=== PATIENT | female | born 1995 | race Caucasian/White ===

== ENCOUNTER 2016-12-12 08:55 | Day surgery (SDC) | payer OTHER ==
[~2016-12-12 08:55] MED LIST: LIDOCAINE 1%/EPINEPHRINE INJ 20 ML VIAL ONE
[2016-12-12] MEDS ORDERED: MIDAZOLAM 2 MG/2 ML INJ ONE (09:49)
[2016-12-12] MEDS ORDERED: FENTANYL CITRATE INJ/PF 100 MCG/2 ML AMPUL ONE ×2 (09:49→10:59)
[2016-12-12] MEDS ORDERED: PROPOFOL INJ 200 MG/20 ML VIAL IV ONE (09:50)
[2016-12-12] MEDS ORDERED: SUCCINYLCHOLINE CHLORIDE INJ 200 MG/10 ML VIAL ONE (09:50)
[2016-12-12] MEDS ORDERED: DEXAMETHASONE SOD PHOS INJ 10 MG/1 ML VIAL ONE (09:50)
[2016-12-12] MEDS ORDERED: ONDANSETRON HCL INJ/PF 4 MG/2 ML SDV ONE (09:50)
[2016-12-12] MEDS ORDERED: LIDOCAINE 2% INJ-PF (20 MG/ML) 10 ML AMPUL ONE (09:50)
[2016-12-12] MEDS ORDERED: ROCURONIUM BROMIDE INJ 50 MG/5 ML VIAL IV ONE (09:50)
[2016-12-12] MEDS ORDERED: HYDROMORPHONE HCL INJ/PF 2 MG/ML AMPULE ONE (09:51)
[2016-12-12] MEDS ORDERED: OXYMETAZOLINE HCL 0.05% NASAL SPRAY 15 ML BOTTLE ONE (09:52)
[2016-12-12] MEDS ORDERED: DIPHENHYDRAMINE HCL 50 MG/ML VIAL ONE ×2 (10:03→12:07)
[2016-12-12] MEDS ORDERED: OXYCODONE-ACETAMINOPHEN 5-325 MG TABLET ONE (11:42)
--- NOTE | 2016-12-12 13:23 | OPERATIVE REPORT E ---
Operative Report NAME: MATTHEW TAMEZ : 1995 AGE: 21Y DATE OF SURGERY: 12/12/2016 ROOM: INDICATIONS FOR SURGERY: This is a 21-year-old female with a history of recurrent tonsillitis. Please see her outpatient medical record for complete details regarding her medical history and examination. PREOPERATIVE DIAGNOSIS: Recurrent tonsillitis. POSTOPERATIVE DIAGNOSIS: Recurrent tonsillitis. PROCEDURE PERFORMED: Tonsillectomy. SURGEON: EMERSON HERNÁNDEZ M.D. FINDINGS: Bilaterally symmetric tonsils. ESTIMATED BLOOD LOSS: 2 mL. DESCRIPTION OF OPERATION: After properly identifying the patient, obtaining informed consent, verifying the surgical site, the patient was brought to the main operating room, placed in the supine position, and general endotracheal anesthesia was obtained in the standard fashion. Bed was turned 90 degrees. The patient's neck was extended via shoulder roll, draped in the usual manner. A formal surgical timeout was then called. Next, the McIvor type mouth gag with slotted tongue depressor was inserted, opened, suspended from a Acosta stand. There was no evidence of bifid uvula or submucosal cleft palate by inspection or palpation. Electrocautery assisted tonsillectomy was then performed. The right tonsil was retracted inferomedially. Incision was made at the superior pole. Subcapsular plane of dissection was then developed and the tonsil was excised without complication. Hemostasis within the fossa was obtained using suction cautery. A similar procedure was then performed for the left tonsil. Oropharynx was irrigated with copious amounts of normal saline, suctioned dry. Mouth gag was removed. The mouth, teeth, lips, and gums were inspected, found to be free of any surgical trauma. The patient was returned to Anesthesia. She was extubated in the OR and taken to the PACU in stable condition having tolerated the procedure well. DICTATING PHYSICIAN: EMERSNO HERNÁNDEZ M.D. [id number] PHY#: [id number] ID: [id number] JOB#: [id number] ACCT: [id number] cc:EMERSON HERNÁNDEZ M.D. >
== END 2016-12-12 13:00 | disposition home or self-care (01) ==
LOC: SC 08:55
PROVIDERS: ATTEND Otolaryngology
PROC: 0CTPXZZ Resection of Tonsils, External Approach (ICD-10-PCS; principal; 2016-12-12 10:00)
DX: J35.1 Hypertrophy of tonsils (principal); Z79.899 Other long term (current) drug therapy
CPT/HCPCS: 88304 ×2; 42826; J2250; J3490 ×3; J1200; J3010; J1170; J0330; J2405; J2704; J1100; 170

== ENCOUNTER 2017-03-14 20:46 | Emergency (ER) | payer OTHER ==
--- NOTE | 2017-03-14 23:09 | ER Document Report ---
ED General - General Chief Complaint: Swelling of Lower Extremity Stated Complaint: LEFT LEG PAIN,SWELLING Notes: Patient is a 22-year-old female who presents for complaint of pain and swelling in her left leg. She is diagnosed with a DVT left leg proximal and one month ago. She also has a "stress fracture her pelvis. She has a referral to orthopedist. She's not yet seen orthopedist. She is followed by primary care doctor with [facility]. She's seeing a new doctor. She is on Xarelto. She has been taking this. She is concerned because she still has some pain and swelling in her left leg despite being on Xarelto. She says she occasionally has some mild chest tightness. Some mild shortness of breath. No fevers. No infections. No hypoxemia. She used to take oral contraceptives. After getting the control they stopped oral contraceptives but started her on the depot shot. She says she is on control because of painful periods. TRAVEL OUTSIDE OF THE [place] IN LAST 30 DAYS: No - Related Data Allergies/Adverse Reactions: fentanyl Adverse Reaction (Mild, Verified 03/14/17 21:28) Hives Past Medical History - Social History Smoking Status: Unknown if Ever Smoked Frequency of alcohol use: None Drug Abuse: None Family History: Reviewed & Not Pertinent Patient has suicidal ideation: No Patient has homicidal ideation: No - Past Medical History Cardiac Medical History: Denies: Hx Heart Attack, Hx Hypertension Pulmonary Medical History: Denies: Hx Asthma Neurological Medical History: Denies: Hx Cerebrovascular Accident, Hx Seizures Renal/ Medical History: Denies: Hx Peritoneal Dialysis GI Medical History: Denies: Hx Hepatitis, Hx Hiatal Hernia, Hx Ulcer Infectious Medical History: Denies: Hx Hepatitis Past Surgical History: Denies: Hx Mastectomy, Hx Open Heart Surgery, Hx Pacemaker Review of Systems - Review of Systems Notes: My Normal Review Basic REVIEW OF SYSTEMS: CONSTITUTIONAL : Denies fever, chills, or sweats. Denies recent illness. EENT: Denies eye, ear, throat, or mouth pain or symptoms. Denies nasal or sinus congestion. CARDIOVASCULAR: Occasional Chest tightness RESPIRATORY: Denies cough, cold, or chest congestion. Denies shortness of breath, difficulty breathing, or wheezing. GASTROINTESTINAL: Denies abdominal pain. Denies nausea, vomiting, or diarrhea. Denies constipation. Last BM: GENITOURINARY: Denies difficulty urinating, painful urination, burning, frequency, or blood in urine. MUSCULOSKELETAL: Left leg pain and swelling. SKIN: Denies rash or skin lesions. HEMATOLOGIC : DVT left leg. NEUROLOGICAL: Denies altered mental status or loss of consciousness. Denies headache. Denies weakness or paralysis or loss of use of either side. Denies problems with gait or speech. Denies sensory or motor loss. ALL OTHER SYSTEMS REVIEWED AND NEGATIVE. Physical Exam - Vital signs Vitals: Temp Pulse Resp BP Pulse Ox 98.6 F 87 22 H 125/83 100 03/14/17 21:28 03/14/17 21:28 03/14/17 21:28 03/14/17 21:28 03/14/17 21:28 - Notes Notes: General Appearance: Well nourished, alert, cooperative, no acute distress, no obvious discomfort. Well-appearing. Vitals: reviewed, See vital signs table. Head: no swelling or tenderness to the head Eyes: PERRL, EOMI, Conjuctiva clear Mouth: No decreasd moisture Lungs: No wheezing, No rales, No rhonci, No accessory muscle use, good air exchange bilaterally. Heart: Normal rate, Regular rythm, No murmur, no rub Abdomen: Normal BS, soft, No rigidity, No abdominal tenderness, No guarding, no rebound, no abdominal masses, no organomegaly Extremities: strength 5/5 in all extremities, good pulses in all extremities, left lower extremity is swollen person to the right. She does have 1+ edema in the left lower extremity. Good pedal pulses. Good distal sensation. Skin: warm, dry, appropriate color, no rash Neuro: speech clear, oriented x 3, normal affect, responds appropriately to questions. Course - Vital Signs Vital signs: Temp Pulse Resp BP Pulse Ox 97.8 F 102 H 19 101/55 L 99 03/15/17 01:37 03/15/17 01:37 03/15/17 01:37 03/15/17 01:37 03/15/17 01:37 - Laboratory Result Diagrams: 03/14/17 23:22 03/14/17 23:22 Laboratory results interpreted by me: 03/14/17 23:22 RBC 5.44 H MCV 69 L MCH 22.0 L - Transfer of Care Notes: 03/15/17 01:06 Patient's has expected swelling in her left lower extremity being that she does have a DVT. Ultrasound shows that she does have a left calf peroneal vein thrombosis. She is on Xarelto. She has been taking this. She says she mainly has some mild shortness of breath; however, she has had 2 CT scans already which were negative. I do not feel that a repeat CT scan is needed as patient clinically looks very well, she has no signs of shortness of breath on exam, she is not tachypneic on my exam, she is not hypoxemic, and she's not tachycardic. I did explain this to the patient. At such a young age does not away the benefits of looking for a PE being that she does not have findings or 5 sign changes that would cause a change in her current treatment regimen. I encourage her to follow closely with her doctor Thursday. I encourage her to talk to her doctor about stopping the depot shots as these are obviously prothrombotic. Patient encouraged to return to the ER immediately if she feels unwell. 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 Please keep your left leg elevated. Please talk to your new doctor on Thursday about potentially discontinuing your Depo shot as continued use of control is a risk factor for forming deep vein clots. Forms: Return to Work
[2017-03-14 23:37] LABS: ABSOLUTE EOSINOPHILS # (AUTO) 0.1 10^3/uL (0.0-0.6); ABSOLUTE LYMPHOCYTES (AUTO) 3.1 10^3/uL (0.5-4.7); ABSOLUTE MONOCYTES (AUTO) 0.6 10^3/uL (0.1-1.4); ABSOLUTE NEUT (AUTO) 3.7 10^3/uL (1.7-8.2); BASOPHILS % (AUTO) 0.4 % (0-2); EOSINOPHILS % (AUTO) 1.2 % (0-6); HEMATOCRIT 37.3 % (36.0-47.0); HGB HCT DIFFERENCE -1.3; LYMPHOCYTES % (AUTO) 41.3 % (13-45); MEAN CORPUSCULAR HGB CONC 32.2 g/dL (32.0-36.0); MEAN CORPUSCULAR VOLUME 69 fl (80-97); RED BLOOD COUNT 5.44 10^6/uL (3.72-5.28); RED CELL DISTRIBUTION WIDTH 13.6 % (11.5-14.0); SEGMENTED NEUTROPHILS % (AUTO) 49.1 % (42-78); WHITE BLOOD COUNT 7.5 10^3/uL (4.0-10.5)
[2017-03-14 23:47] LABS: ALANINE AMINOTRANSFERASE 31 U/L (9-52); ALBUMIN 4.4 g/dL (3.5-5.0); ALKALINE PHOSPHATASE 75 U/L (38-126); ANION GAP 14 (5-19); ASPARTATE AMINO TRANSFERASE 21 U/L (14-36); BILIRUBIN,TOTAL 0.7 mg/dL (0.2-1.3); BLOOD UREA NITROGEN 13 mg/dL (7-20); CALCIUM 9.6 mg/dL (8.4-10.2); CARBON DIOXIDE 22 mmol/L (22-30); CHLORIDE 106 mmol/L (98-107); CREATININE RESULT 0.72 mg/dL (0.52-1.25); GLUCOSE 99 mg/dL (75-110); POTASSIUM 4.4 mmol/L (3.6-5.0); SODIUM 142.3 mmol/L (137-145); TOTAL PROTEIN 7.4 g/dL (6.3-8.2)
[2017-03-15 01:39] VITALS: BP 101/55
--- NOTE | 2017-03-15 10:18 | EKG REPORT ---
SEVERITY:- BORDERLINE ECG - SINUS ARRHYTHMIA, RATE 62-84 INFERIOR Q WAVES, PROBABLY NORMAL VARIATION : Confirmed by: Chilango Rivero 15-Mar-2017 10:17:22
== END 2017-03-15 01:37 | disposition home or self-care (01) ==
LOC: ER 20:46
DX: I82.592 Chronic embolism and thrombosis of other specified deep vein of left lower extremity (principal); M79.89 Other specified soft tissue disorders; M79.605 Pain in left leg; R06.02 Shortness of breath
CPT/HCPCS: 36415; 80053; 84702; 85025; 93005; 93010; 93971; 99284

== ENCOUNTER 2018-09-22 17:10 | Emergency (ER) | payer OTHER ==
[2018-09-22 17:16] VITALS: BP 128/75
--- NOTE | 2018-09-22 17:39 | ER Document Report ---
HPI - HPI Pain Level: 2 Past Medical History - Social History Family History: Reviewed & Not Pertinent - Past Medical History Cardiac Medical History: Denies: Hx Heart Attack, Hx Hypertension Pulmonary Medical History: Denies: Hx Asthma Neurological Medical History: Denies: Hx Cerebrovascular Accident, Hx Seizures Renal/ Medical History: Denies: Hx Peritoneal Dialysis GI Medical History: Denies: Hx Hepatitis, Hx Hiatal Hernia, Hx Ulcer Infectious Medical History: Denies: Hx Hepatitis Past Surgical History: Denies: Hx Mastectomy, Hx Open Heart Surgery, Hx Pacemaker - Immunizations Hx Diphtheria, Pertussis, Tetanus Vaccination: Yes Vertical Provider Document - INFECTION CONTROL TRAVEL OUTSIDE OF THE [place] IN LAST 30 DAYS: No Course - Vital Signs Vital signs: Temp Pulse Resp BP Pulse Ox 98.4 F 89 20 128/75 H 98 09/22/18 17:15 09/22/18 17:15 09/22/18 17:15 09/22/18 17:15 09/22/18 17:15 Discharge - Discharge Clinical Impression: Cystitis Condition: Good Disposition: HOME, SELF-CARE Instructions: Urinary Tract Infection ([facility]), Nitrofurantoin ([facility]) Additional Instructions: Drink plenty of fluids Return to the emergency room for increased pain, fever, chills, back pain, vomiting Prescriptions: Nitrofurantoin/Nitrofuran Mac [Macrobid 100 mg Capsule] 100 mg PO BID #14 capsule Forms: Return to Work
[2018-09-22] MEDS ORDERED: CLINDAMYCIN 600 MG/D5W RTU 600 MG/50 ML RTUPB IV ONE (17:46)
--- NOTE | 2018-09-22 17:47 | ER Document Report ---
HPI - HPI Patient complains to provider of: Dysuria and frequency Onset: Other - 3 days Pain Level: 2 Context: 23-year-old female complaining of dysuria and urinary frequency for 3 days. No pelvic pain or vaginal discharge. No flank pain. No nausea vomiting or fever. The symptoms are similar to her other bladder infections. Associated Symptoms: None Exacerbated by: Other - See above Relieved by: Denies Similar symptoms previously: No Recently seen / treated by doctor: No - ROS ROS below otherwise negative: Yes Systems Reviewed and Negative: Yes All other systems reviewed and negative - URINARY Urinary: REPORTS: Dysuria, Urgency, Frequency Past Medical History - General Information source: Patient - Social History Smoking Status: Never Smoker Frequency of alcohol use: None Drug Abuse: None Family History: Reviewed & Not Pertinent Patient has suicidal ideation: No Patient has homicidal ideation: No - Medical History Medical History: Negative Surgical Hx: Negative - Immunizations Hx Diphtheria, Pertussis, Tetanus Vaccination: Yes Vertical Provider Document - CONSTITUTIONAL Agree With Documented VS: Yes - INFECTION CONTROL TRAVEL OUTSIDE OF THE [place] IN LAST 30 DAYS: No - GI/ABDOMEN Gastrointestinal: Abdomen Soft, Abdomen Non-Tender, No Organomegaly - BACK Back: Normal Inspection. negative: CVA Tenderness-Right, CVA Tenderness-Left - NEURO Level of Consciousness: Awake, Alert Course - Vital Signs Vital signs: Temp Pulse Resp BP Pulse Ox 98.4 F 89 20 128/75 H 98 09/22/18 17:15 09/22/18 17:15 09/22/18 17:15 09/22/18 17:15 09/22/18 17:15 Discharge - Discharge Clinical Impression: Cystitis Condition: Good Disposition: HOME, SELF-CARE Instructions: Nitrofurantoin ([facility]), Urinary Tract Infection ([facility]) Additional Instructions: Drink plenty of fluids Return to the emergency room for increased pain, fever, chills, back pain, vomiting Prescriptions: Nitrofurantoin/Nitrofuran Mac [Macrobid 100 mg Capsule] 100 mg PO BID #14 capsule Forms: Return to Work
== END 2018-09-22 17:51 | disposition home or self-care (01) ==
LOC: ER 17:10
DX: N30.90 Cystitis, unspecified without hematuria (principal)
CPT/HCPCS: 99283